=== PATIENT | female | born 1990 | race Caucasian/White ===

== ENCOUNTER 2020-02-28 12:07 | Emergency (ER) | payer MEDICAID ==
[~2020-02-28] VITALS: Ht 157.5 cm; Wt 93.9 kg
[2020-02-28 12:12] VITALS: BP 132/80
[2020-02-28] MEDS: KETOROLAC 60 MG/2 ML VIAL IM ONE (12:27)
[2020-02-28 13:52] VITALS: BP 128/82
== END 2020-02-28 13:52 | disposition home or self-care (01) ==
LOC: MED 12:07
DX: S63.501A Unspecified sprain of right wrist, initial encounter (principal); X58.XXXA Exposure to other specified factors, initial encounter; Y93.89 Activity, other specified; Y92.89 Other specified places as the place of occurrence of the external cause; Y99.8 Other external cause status
CPT/HCPCS: 29125; 96372; 99283; J1885

== ENCOUNTER 2020-04-02 14:53 | Emergency (ER) | payer MEDICAID, SELFPAY ==
[~2020-04-02] VITALS: Ht 157.5 cm; Wt 90.7 kg
[2020-04-02 15:15] VITALS: BP 152/89
--- NOTE | 2020-04-02 15:58 | NUR ---
COVID SWAB COLLECTED AND SENT TO THE LAB.
--- NOTE | 2020-04-02 16:00 | NUR ---
Patient discharged with v/s stable. Written and verbal after care instructions given and explained. Patient alert, oriented and verbalized understanding of instructions. Ambulatory with steady gait. All questions addressed prior to discharge. ID band removed. Patient advised to follow up with PMD. Rx of Promethzine and Ibuprofen given. Patient educated on indication of medication including possible reaction and side effects. Opportunity to ask questions provided and answered. No other nursing care provided in our ER.
== END 2020-04-02 16:00 | disposition home or self-care (01) ==
LOC: MED 14:53
DX: R03.0 Elevated blood-pressure reading, without diagnosis of hypertension (principal); Z20.828 Contact with and (suspected) exposure to other viral communicable diseases
CPT/HCPCS: 99283; U0003

== ENCOUNTER 2020-09-08 12:31 | Observation (INO) | payer MEDICAID, SELFPAY ==
[~2020-09-08] VITALS: Ht 157.5 cm; Wt 95.3 kg
[2020-09-08] MEDS ORDERED: FAMO-90 PO (13:03)
[2020-09-08] MEDS ORDERED: ONDA4TAB PO (13:03)
[2020-09-08 13:25] VITALS: BP 138/63
[2020-09-08] MEDS ORDERED: ONDANSETRON 8 MG in NACL 0.9% 50 ML IVP PRN (13:50)
[2020-09-08] MEDS: LACTATED RINGERS 1,000 ML IV SCH ×2 (14:17→18:08)
[2020-09-08] MEDS ORDERED: ACETAMINOPHEN 325 MG TAB PO PRN (15:20)
[2020-09-08] MEDS ORDERED: ACETAMINOPHEN 325 MG TAB ONE (15:22)
[2020-09-08] MEDS: MORPHINE SULFATE 4 MG/ML SYR IVP PRN (20:38)
[2020-09-08] MEDS ORDERED: ONDANSETRON 4 MG/2 ML VIAL ONE (22:17)
[2020-09-08] MEDS: ONDANSETRON 8 MG in NACL 0.9% 50 ML IVP PRN (22:53)
[2020-09-09] MEDS: MORPHINE SULFATE 4 MG/ML SYR IVP PRN ×2 (00:56→07:32)
[2020-09-09] MEDS: LACTATED RINGERS 1,000 ML IV SCH ×2 (02:25→10:04)
[2020-09-09] MEDS ORDERED: ONDANSETRON 4 MG/2 ML VIAL ONE (06:36)
[2020-09-09] MEDS: ONDANSETRON 8 MG in NACL 0.9% 50 ML IVP PRN (06:54)
--- NOTE | 2020-09-09 08:25 | NUR ---
PATIENT HAS BEEN SCREENED AND CATEGORIZED LOW NUTRITION RISK. PATIENT WILL BE SEEN WITHIN 7 DAYS OF ADMISSION. 09/15/[address]
[2020-09-09] MEDS ORDERED: ALUMINUM HYD/MAG/SIMETHICONE 30 ML UDC PO PRN (11:55)
[2020-09-09] MEDS ORDERED: FAMOTIDINE 20 MG TAB ONE (13:16)
[2020-09-09] MEDS ORDERED: FAMOTIDINE 20 MG TAB PO SCH ×2 (13:30→21:00)
== END 2020-09-09 13:45 | disposition home or self-care (01) ==
LOC: MLD 12:31 → MFCC 12:42
PROVIDERS: ADMIT Obstetrics & Gynecology; ATTEND Obstetrics & Gynecology
DX: O21.2 Late vomiting of pregnancy (principal); O26.892 Other specified pregnancy related conditions, second trimester; R10.9 Unspecified abdominal pain; R42 Dizziness and giddiness; Z3A.27 27 weeks gestation of pregnancy
CPT/HCPCS: 59025; 81000; 96361; 96374; 96375; 96376; G0378; J2270; J2405; J7120

== ENCOUNTER 2020-10-14 14:47 | Observation (INO) | payer MEDICAID ==
[~2020-10-14] VITALS: Ht 157.5 cm; Wt 90.7 kg
[~2020-10-14 14:47] MED LIST: FAMO-90 PO
[2020-10-14] MEDS ORDERED: ONDA4TAB PO (15:24)
[2020-10-14] MEDS ORDERED: PNV91TAB10 PO (15:24)
[2020-10-14] MEDS ORDERED: ONDANSETRON 4 MG/2 ML VIAL IVP PRN (15:45)
[2020-10-14] MEDS ORDERED: LACTATED RINGERS 1,000 ML IV SCH (15:45)
[2020-10-14] MEDS ORDERED: FAMOTIDINE 20 MG/2 ML VIAL IVP SCH (18:10)
[2020-10-14] MEDS ORDERED: MORPHINE SULFATE 2 MG/ML SYR IVP SCH (18:10)
[2020-10-14] MEDS ORDERED: MORPHINE SULFATE 4 MG/ML SYR ONE (18:17)
== END 2020-10-14 21:28 | disposition home or self-care (01) ==
LOC: MLD 14:47
PROVIDERS: ADMIT Obstetrics & Gynecology; ATTEND Obstetrics & Gynecology
DX: O36.8130 Decreased fetal movements, third trimester, not applicable or unspecified (principal); Z20.822 Contact with and (suspected) exposure to COVID-19; O21.2 Late vomiting of pregnancy; O26.893 Other specified pregnancy related conditions, third trimester; R19.7 Diarrhea, unspecified; R10.13 Epigastric pain; O99.353 Diseases of the nervous system complicating pregnancy, third trimester; G43.909 Migraine, unspecified, not intractable, without status migrainosus; Z3A.33 33 weeks gestation of pregnancy
CPT/HCPCS: 59025; 87426; 96361; 96374; 96375; G0378; J2270; J2405; J3490

== ENCOUNTER 2020-10-31 08:53 | Inpatient (IN) | payer MEDICAID, SELFPAY ==
[~2020-10-31] VITALS: Ht 157.5 cm; Wt 97.5 kg
[~2020-10-31 08:53] MED LIST changes: +ONDA4TAB PO; +PNV91TAB10 PO
[2020-10-31] MEDS ORDERED: LACTATED RINGERS 1,000 ML IV SCH (09:30)
[2020-10-31] MEDS ORDERED: BETAMETH ACET/BETAMETH NA PH 30 MG/5 ML VIAL IM SCH (09:30)
[2020-10-31] MEDS: ACETAMINOPHEN 325 MG TAB PO PRN (09:50)
[2020-10-31] MEDS ORDERED: CITRIC ACID/SODIUM CITRATE 30 ML UDC PO SCH (10:25)
[2020-10-31] MEDS ORDERED: MAG SULF 2000 MG/WATER PREMIX 100 ML IV SCH (10:30)
[2020-10-31] MEDS ORDERED: hydrALAZINE 20 MG/ML VIAL IVP SCH (10:30)
[2020-10-31 10:39] VITALS: BP 166/79
[2020-10-31] MEDS: MAG SULF 20 GM/H2O PREMIX DRIP 500 ML IV PRN (11:25)
[2020-10-31 11:27] LABS: APPEARANCE,URINE CLEAR (CLEAR); BILIRUBIN,URINE NEGATIVE (NEGATIVE); BLOOD, URINE NEGATIVE (NEGATIVE); COLOR,URINE YELLOW (YELLOW); LEUKOCYTE ESTERASE ,URINE NEGATIVE (NEGATIVE); NITRITE, URINE NEGATIVE (NEGATIVE); UGLUCOSE NEGATIVE (NEGATIVE)
[2020-10-31 11:31] LABS: BASOPHILS % (AUTO) 0.1 % (0.0-2.0); EOSINOPHILS % (AUTO) 0.3 % (0.0-4.0); HEMATOCRIT 32.7 % (36-48); HEMOGLOBIN 10.6 g/dL (12.0-16.0); LYMPHOCYTES # (AUTO) 1.7 K/uL (2.5-16.5); LYMPHOCYTES % (AUTO) 24.3 % (20.5-51.1); MEAN CORPUSCULAR HEMOGLOBIN 27 pg (27-31); MEAN CORPUSCULAR HGB CONC 32 g/dL (33-37); MEAN CORPUSCULAR VOLUME 84.2 fL (80-94); MONOCYTES # (AUTO) 0.4 K/uL (0.8-1.0); MONOCYTES % (AUTO) 6.2 % (1.7-9.3); NEUTROPHILS # (AUTO) 4.7 K/uL (1.8-7.7); NEUTROPHILS % (AUTO) 69.1 % (42.2-75.2); PLATELET COUNT (AUTO) 188 K/uL (140-450); RED BLOOD CELL COUNT(AUTO) 3.88 MIL/uL (4.20-5.40); WHITE BLOOD COUNT (AUTO) 6.8 K/uL (4.8-10.8)
[2020-10-31 11:39] LABS: ANION GAP 14.7 (8-16); CARBON DIOXIDE 22.1 mmol/L (21-32); CREATININE 0.7 mg/dL (0.6-1.3); POTASSIUM 3.8 mmol/L (3.5-5.1)
[2020-10-31 11:44] LABS: ALBUMIN 2.1 g/dL (3.4-5.0); TOTAL BILIRUBIN 0.1 mg/dL (0.0-1.0)
[2020-10-31] MEDS ORDERED: MORPHINE PRES FREE 10 MG/10 ML AMP IV ONE (12:04)
[2020-10-31] MEDS ORDERED: ONDANSETRON 4 MG/2 ML VIAL IVP PRN (12:10)
[2020-10-31] MEDS ORDERED: MAGNESIUM CITRATE 300 ML BTL PO SCH (12:10)
[2020-10-31] MEDS ORDERED: MAG SULF 20 GM/H2O PREMIX DRIP 500 ML IV SCH (12:10)
[2020-10-31] MEDS ORDERED: TEMAZEPAM 15 MG CAP PO PRN (12:10)
[2020-10-31] MEDS ORDERED: oxyCODONE/APAP 5/325 MG 1 TAB TAB PO PRN ×2 (12:10)
[2020-10-31] MEDS ORDERED: ceFAZolin 1,000 MG VIAL IVP ONE (12:20)
[2020-10-31] MEDS ORDERED: OXYTOCIN 20 UNITS/LR PREMIX 1,000 ML IV ONE (12:50)
[2020-10-31] MEDS ORDERED: PROMETHAZINE 25 MG/ML VIAL IVP PRN (16:05)
[2020-10-31] MEDS: KETOROLAC 30 MG/ML VIAL IVP PRN (16:25)
[2020-10-31] MEDS: OXYTOCIN 20 UNITS in LACTATED RINGERS 1,000 ML IV SCH (19:33)
[2020-11-01] MEDS: MAG SULF 20 GM/H2O PREMIX DRIP 500 ML IV PRN (00:31)
[2020-11-01] MEDS: LABETALOL 200 MG TAB PO SCH ×3 (01:16→20:37)
[2020-11-01] MEDS: DOCUSATE SOD/SENNA 50/8.6 MG 1 TAB PO SCH ×2 (01:22→20:01)
--- NOTE | 2020-11-01 07:03 | NUR ---
PATIENT HAS BEEN SCREENED AND CATEGORIZED LOW NUTRITION RISK. PATIENT WILL BE SEEN WITHIN 7 DAYS OF ADMISSION. 11/08/20 DEYANIRA HERNANDEZ MS, RDN
[2020-11-01 07:19] LABS: BASOPHILS % (AUTO) 0.1 % (0.0-2.0); HEMATOCRIT 31.4 % (36-48); HEMOGLOBIN 10.3 g/dL (12.0-16.0); LYMPHOCYTES # (AUTO) 0.8 K/uL (2.5-16.5); LYMPHOCYTES % (AUTO) 7.3 % (20.5-51.1); MEAN CORPUSCULAR HEMOGLOBIN 27 pg (27-31); MEAN CORPUSCULAR HGB CONC 33 g/dL (33-37); MEAN CORPUSCULAR VOLUME 82.4 fL (80-94); MONOCYTES # (AUTO) 0.4 K/uL (0.8-1.0); MONOCYTES % (AUTO) 3.5 % (1.7-9.3); NEUTROPHILS # (AUTO) 10.3 K/uL (1.8-7.7); NEUTROPHILS % (AUTO) 89.1 % (42.2-75.2); PLATELET COUNT (AUTO) 204 K/uL (140-450); RED BLOOD CELL COUNT(AUTO) 3.81 MIL/uL (4.20-5.40); RED CELL DISTRIBUTION WIDTH 13.7 % (11.6-13.7); WHITE BLOOD COUNT (AUTO) 11.6 K/uL (4.8-10.8)
[2020-11-01] MEDS: KETOROLAC 30 MG/ML VIAL IVP PRN (07:46)
[2020-11-01] MEDS ORDERED: OXYTOCIN 20 UNITS/LR PREMIX 1,000 ML IV ONE (08:25)
[2020-11-01] MEDS: OXYTOCIN 20 UNITS in LACTATED RINGERS 1,000 ML IV SCH (08:29)
[2020-11-01] MEDS: IBUPROFEN 800 MG TAB PO PRN ×2 (14:10→22:44)
[2020-11-01] MEDS: SIMETHICONE 80 MG TAB.CHEW PO PRN (18:49)
[2020-11-01] MEDS: ACETAMINOPHEN 325 MG TAB PO PRN (18:50)
[2020-11-01] MEDS ORDERED: CAMERA MC ONE (19:31)
[2020-11-02] MEDS: IBUPROFEN 800 MG TAB PO PRN ×2 (05:13→16:49)
[2020-11-02] MEDS: SIMETHICONE 80 MG TAB.CHEW PO PRN (08:43)
[2020-11-02] MEDS: ACETAMINOPHEN 325 MG TAB PO PRN (08:43)
[2020-11-02] MEDS: LABETALOL 200 MG TAB PO SCH ×2 (08:43→20:29)
[2020-11-02 15:06] LABS: HEPATITIS B SURFACE ANTIGEN Negative (Negative)
[2020-11-02] MEDS ORDERED: CAMERA MC ONE (19:51)
[2020-11-02] MEDS: DOCUSATE SOD/SENNA 50/8.6 MG 1 TAB PO SCH (20:26)
[2020-11-03] MEDS: IBUPROFEN 800 MG TAB PO PRN ×2 (00:23→08:54)
[2020-11-03] MEDS: LABETALOL 200 MG TAB PO SCH (08:54)
[2020-11-04 11:13] LABS: RAPID PLASMA REAGIN NON-REACTIVE (Non Reactiv)
== END 2020-11-03 13:35 | disposition home or self-care (01) | DRG 540 ==
LOC: MLD 08:53 → OBSVTOIN 10:25 → MLD 14:04 → MFCC 11-01 14:10
PROVIDERS: ADMIT Obstetrics & Gynecology; ATTEND Obstetrics & Gynecology
PROC: 10D00Z1 Extraction of Products of Conception, Low, Open Approach (ICD-10-PCS; principal; 2020-10-31 13:00)
DX: O14.14 Severe pre-eclampsia complicating childbirth (principal); Z20.822 Contact with and (suspected) exposure to COVID-19; Z37.0 Single live birth; Z3A.35 35 weeks gestation of pregnancy
CPT/HCPCS: G0378 ×2; 36415; 51702; 80053; 81003; 82570; 83735; 85025; 86592; 86762; 86886; 86900; 86901; 87340; 87653-90; 88307; J0360; J0690; J0702; J1885; J2270; J2550; J2590; J3475; J7060; J7120

== ENCOUNTER 2020-12-02 11:40 | Emergency (ER) | payer MEDICAID, SELFPAY ==
[~2020-12-02] VITALS: Ht 157.5 cm; Wt 90.3 kg
[~2020-12-02 11:40] MED LIST changes: -FAMO-90 PO; -ONDA4TAB PO
[2020-12-02 12:07] VITALS: BP 138/75
--- NOTE | 2020-12-02 12:11 | NUR ---
PT TO WAIT IN TENT FOR DR EVALUATION
--- NOTE | 2020-12-02 13:16 | NUR ---
PT AMBULATED TO BED 11. PT PROVIDED URINE SAMPLE
[2020-12-02 13:36] LABS: BASOPHILS # (AUTO) 0.1 K/uL (0.00-0.22); BASOPHILS % (AUTO) 0.8 % (0.0-2.0); EOSINOPHILS # (AUTO) 0.1 K/uL (0-0.4); EOSINOPHILS % (AUTO) 1.4 % (0.0-4.0); HEMATOCRIT 34.7 % (36-48); HEMOGLOBIN 11.4 g/dL (12.0-16.0); LYMPHOCYTES # (AUTO) 2.3 K/uL (2.5-16.5); LYMPHOCYTES % (AUTO) 27.9 % (20.5-51.1); MEAN CORPUSCULAR HEMOGLOBIN 27 pg (27-31); MEAN CORPUSCULAR HGB CONC 33 g/dL (33-37); MEAN CORPUSCULAR VOLUME 83.2 fL (80-94); MONOCYTES # (AUTO) 0.4 K/uL (0.8-1.0); NEUTROPHILS # (AUTO) 5.4 K/uL (1.8-7.7); NEUTROPHILS % (AUTO) 64.9 % (42.2-75.2); PLATELET COUNT (AUTO) 225 K/uL (140-450); RED BLOOD CELL COUNT(AUTO) 4.17 MIL/uL (4.20-5.40); RED CELL DISTRIBUTION WIDTH 14.2 % (11.6-13.7); WHITE BLOOD COUNT (AUTO) 8.4 K/uL (4.8-10.8)
--- NOTE | 2020-12-02 13:40 | NUR ---
30/F C/O PAIN AT SITE. STATES SHE HAD A ONE MONTH AGO, STATES 9/10 PAIN FOR TWO DAYS, PAIN DESCRIBED SHARP/PULLING PAIN, WITH CHILLS, COLD SWEATS, DIZZINESS. DENIES FEVER, NAUSEA OR VOMITING. PT C SECTION SITE IS HEALED, THIN RED LINE TO LOWER ABD. NO DRAINAGE NOTED. PT PLACED IN GOWN. BED IN LOWEST POSITION FOR SAFETY. PMH: PRE-ECLAMPSIA & HTN DURING ALLERGIES: DENIES
--- NOTE | 2020-12-02 13:41 | NUR ---
LABS COLLECTED AND HANDED TO CLINIC OFFICE ASSISTANT.
[2020-12-02 13:48] LABS: ALBUMIN 3.2 g/dL (3.4-5.0); ANION GAP 11.4 (8-16); CARBON DIOXIDE 28.9 mmol/L (21-32); CREATININE 0.8 mg/dL (0.6-1.3); POTASSIUM 4.3 mmol/L (3.5-5.1); TOTAL BILIRUBIN 0.2 mg/dL (0.0-1.0)
--- NOTE | 2020-12-02 15:00 | NUR ---
Gary salguero in [facility] - 12/02/20 at 1500 by KENNETH LABS COLLECTED AND HANDED TO IRON ERECTOR.
--- NOTE | 2020-12-02 15:00 | NUR ---
LABS COLLECTED AND HANDED TO POTATO CHIP FRYER.
[2020-12-02] MEDS ORDERED: KETOROLAC 15 MG/ML VIAL IVP ONE (16:00)
[2020-12-02] MEDS ORDERED: MORPHINE SULFATE 4 MG/ML SYR IVP ONE (16:00)
[2020-12-02 16:33] LABS: APPEARANCE,URINE CLEAR (CLEAR); BILIRUBIN,URINE NEGATIVE (NEGATIVE); BLOOD, URINE NEGATIVE (NEGATIVE); COLOR,URINE YELLOW (YELLOW); LEUKOCYTE ESTERASE ,URINE NEGATIVE (NEGATIVE); NITRITE, URINE NEGATIVE (NEGATIVE); UGLUCOSE NEGATIVE (NEGATIVE)
[2020-12-02] MEDS ORDERED: ACET-10509 PO (16:33)
--- NOTE | 2020-12-02 16:50 | NUR ---
Patient discharged with v/s stable. Written and verbal after care instructions given and explained. Patient alert, oriented and verbalized understanding of instructions. Ambulatory with steady gait. All questions addressed prior to discharge. ID band removed. Patient advised to follow up with PMD. Rx of TYLENOL EXTRA STRENGTH given. Patient educated on indication of medication including possible reaction and side effects. Opportunity to ask questions provided and answered.
[2020-12-02 16:51] VITALS: BP 138/75
== END 2020-12-02 16:50 | disposition home or self-care (01) ==
LOC: MED 11:40
DX: R10.2 Pelvic and perineal pain (principal); G89.18 Other acute postprocedural pain; Z79.899 Other long term (current) drug therapy
CPT/HCPCS: 36415; 74177; 80053; 81003; 81025; 83690; 85025; 96374; 96375; 99285; J1885; J2270; Q9967

== ENCOUNTER 2021-04-07 07:46 | Emergency (ER) | payer MEDICAID, SELFPAY ==
[~2021-04-07] VITALS: Ht 157.5 cm; Wt 100.4 kg
[~2021-04-07 07:46] MED LIST changes: +ACET-10509 PO
[2021-04-07 07:50] VITALS: BP 155/91
--- NOTE | 2021-04-07 07:56 | NUR ---
PT AMB TO BED 8
--- NOTE | 2021-04-07 08:00 | NUR ---
DR LEE AT BEDSIDE.
--- NOTE | 2021-04-07 08:00 | NUR ---
EKG AT BEDSIDE.
--- NOTE | 2021-04-07 08:11 | NUR ---
31 Y/O F C/O CHEST PAIN 9/10 STARTED LAST NIGHT AND GOT WORSE THIS MORNIG AND ALSO BACK PAIN FOR THE LAST 2 DAYS. VITALS STABLE, O2 AT 99% ROOM AIR. 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
--- NOTE | 2021-04-07 08:21 | NUR ---
LAB AT BEDSIDE.
--- NOTE | 2021-04-07 08:28 | NUR ---
PT TO X-RAY VIA WHEELCHAIR.
[2021-04-07 08:32] LABS: BASOPHILS % (AUTO) 0.5 % (0.0-2.0); EOSINOPHILS # (AUTO) 0.1 K/uL (0-0.4); EOSINOPHILS % (AUTO) 0.8 % (0.0-4.0); HEMATOCRIT 35.8 % (36-48); HEMOGLOBIN 11.9 g/dL (12.0-16.0); LYMPHOCYTES # (AUTO) 2.3 K/uL (2.5-16.5); LYMPHOCYTES % (AUTO) 35.3 % (20.5-51.1); MEAN CORPUSCULAR HEMOGLOBIN 27 pg (27-31); MEAN CORPUSCULAR HGB CONC 33 g/dL (33-37); MEAN CORPUSCULAR VOLUME 82.3 fL (80-94); MONOCYTES # (AUTO) 0.4 K/uL (0.8-1.0); MONOCYTES % (AUTO) 5.4 % (1.7-9.3); NEUTROPHILS # (AUTO) 3.8 K/uL (1.8-7.7); PLATELET COUNT (AUTO) 243 K/uL (140-450); RED BLOOD CELL COUNT(AUTO) 4.36 MIL/uL (4.20-5.40); RED CELL DISTRIBUTION WIDTH 13.3 % (11.6-13.7); WHITE BLOOD COUNT (AUTO) 6.5 K/uL (4.8-10.8)
--- NOTE | 2021-04-07 08:34 | NUR ---
Gary salguero in [facility] - 04/07/21 at 1120 by [email or web address] PATIENT ESCORTED BACK TO BED VIA WHEELCHAIR
--- NOTE | 2021-04-07 08:35 | NUR ---
PT BACK FROM X-RAY.
[2021-04-07 08:50] LABS: ALBUMIN 3.5 g/dL (3.4-5.0); ANION GAP 13.2 (8-16); CARBON DIOXIDE 24.7 mmol/L (21-32); CREATININE 0.8 mg/dL (0.6-1.3); POTASSIUM 3.9 mmol/L (3.5-5.1); TOTAL BILIRUBIN 0.3 mg/dL (0.0-1.0)
[2021-04-07] MEDS ORDERED: KETOROLAC 30 MG/ML VIAL IVP ONE (09:10)
[2021-04-07] MEDS ORDERED: CYCLOBENZAPRINE 10 MG TAB PO ONE (09:10)
[2021-04-07] MEDS ORDERED: LIDOCAINE 5% 1 EA PATCH TP ONE (09:26)
[2021-04-07] MEDS ORDERED: ACET-2619 PO (11:06)
[2021-04-07 11:41] VITALS: BP 134/85
--- NOTE | 2021-04-07 11:43 | NUR ---
Patient discharged with v/s stable. Written and verbal after care instructions given and explained. Patient alert, oriented and verbalized understanding of instructions. Ambulatory with steady gait. All questions addressed prior to discharge. ID band removed. Patient advised to follow up with PMD. Rx of ACETAMINOPHEN given. Opportunity to ask questions provided and answered.
--- NOTE | 2021-04-07 11:44 | NUR ---
The patient's care was reviewed and supervised by Richelle Louie RN.
[2021-04-08] MEDS ORDERED: LIDOCAINE 5% 1 EA PATCH TP SCH (09:00)
== END 2021-04-07 11:42 | disposition home or self-care (01) ==
LOC: MED 07:46
DX: R07.9 Chest pain, unspecified (principal); Z79.899 Other long term (current) drug therapy
CPT/HCPCS: 36415; 71046; 80053; 81002; 84484; 85025; 93005; 96372; 99285; J1885

== ENCOUNTER 2021-07-18 14:38 | Emergency (ER) | payer MEDICAID ==
[~2021-07-18] VITALS: Ht 157.5 cm; Wt 93.0 kg
[~2021-07-18 14:38] MED LIST changes: +ACET-2619 PO
[2021-07-18 14:46] VITALS: BP 170/87
[2021-07-18] MEDS ORDERED: CEPH-588 PO (15:49)
[2021-07-18] MEDS ORDERED: ACET-8386 PO (15:49)
[2021-07-18 16:02] VITALS: BP 170/87
--- NOTE | 2021-07-18 16:03 | NUR ---
Patient discharged with v/s stable. Written and verbal after care instructions given and explained. Patient alert, oriented and verbalized understanding of instructions. Ambulatory with steady gait. All questions addressed prior to discharge. ID band removed. Patient advised to follow up with PMD. Rx of KEFLEX AND HYDROCODONE/ACETAMINOPHEN given. Patient educated on indication of medication including possible reaction and side effects. Opportunity to ask questions provided and answered.
== END 2021-07-18 16:03 | disposition home or self-care (01) ==
LOC: MED 14:38
DX: M96.89 Other intraoperative and postprocedural complications and disorders of the musculoskeletal system (principal); R03.0 Elevated blood-pressure reading, without diagnosis of hypertension; Z79.899 Other long term (current) drug therapy; Y83.9 Surgical procedure, unspecified as the cause of abnormal reaction of the patient, or of later complication, without mention of misadventure at the time of the procedure
CPT/HCPCS: 99283

== ENCOUNTER 2023-04-19 16:03 | Emergency (ER) | payer MEDICAID ==
[~2023-04-19] VITALS: Ht 157.5 cm; Wt 79.8 kg
[~2023-04-19 16:03] MED LIST changes: +ACET-8905 PO; +CEPH-588 PO
[2023-04-19 16:12] VITALS: BP 150/78; PULSE 75; RESP 18; TEMP 98; O2SAT 100
[2023-04-19] MEDS: methocarbamoL 500 MG TAB PO STA (20:34)
[2023-04-19] MEDS: KETOROLAC 30 MG/ML VIAL IM ONE (20:36)
[2023-04-19] MEDS: LIDOCAINE 5% 1 EA PATCH TP ONE (20:37)
[2023-04-19] MEDS ORDERED: IBUP-2213 PO (21:07)
[2023-04-19] MEDS ORDERED: LID5T TP (21:07)
[2023-04-19] MEDS ORDERED: METH-1681 PO (21:07)
[2023-04-19 21:33] VITALS: BP 135/60; PULSE 75; RESP 18; TEMP 98; O2SAT 100
== END 2023-04-19 21:33 | disposition home or self-care (01) ==
LOC: MED 16:03
DX: M54.50 Low back pain, unspecified (principal); Z79.899 Other long term (current) drug therapy; Z79.1 Long term (current) use of non-steroidal anti-inflammatories (NSAID); Z79.2 Long term (current) use of antibiotics
CPT/HCPCS: 72110; 81002; 81025; 96372; 99283; J1885

== ENCOUNTER 2023-07-29 12:51 | Emergency (ER) | payer MEDICAID ==
[~2023-07-29] VITALS: Ht 157.5 cm; Wt 78.9 kg
[~2023-07-29 12:51] MED LIST changes: +IBUP-2213 PO; +LID5T TP; +METH-1681 PO
[2023-07-29 13:18] VITALS: BP 152/94; PULSE 57; RESP 16; TEMP 98.4; O2SAT 99
[2023-07-29] MEDS: ACETAMINOPHEN EXTRA STRENGTH 500 MG TAB PO ONE (14:25)
[2023-07-29] MEDS: KETOROLAC 30 MG/ML VIAL IM ONE (14:27)
[2023-07-29 14:48] LABS: BASOPHILS % (AUTO) 0.2 % (0.0-2.0); EOSINOPHILS # (AUTO) 0.1 K/uL (0-0.4); EOSINOPHILS % (AUTO) 0.8 % (0.0-4.0); HEMATOCRIT 38.6 % (36-48); HEMOGLOBIN 12.6 g/dL (12.0-16.0); LYMPHOCYTES # (AUTO) 2.7 K/uL (2.5-16.5); LYMPHOCYTES % (AUTO) 40.5 % (20.5-51.1); MEAN CORPUSCULAR HEMOGLOBIN 28 pg (27-31); MEAN CORPUSCULAR HGB CONC 33 g/dL (33-37); MEAN CORPUSCULAR VOLUME 86.1 fL (80-94); MONOCYTES # (AUTO) 0.3 K/uL (0.8-1.0); MONOCYTES % (AUTO) 3.8 % (1.7-9.3); NEUTROPHILS # (AUTO) 3.7 K/uL (1.8-7.7); NEUTROPHILS % (AUTO) 54.7 % (42.2-75.2); PLATELET COUNT (AUTO) 198 K/uL (140-450); RED BLOOD CELL COUNT(AUTO) 4.48 MIL/uL (4.20-5.40); RED CELL DISTRIBUTION WIDTH 13.7 % (11.6-13.7); WHITE BLOOD COUNT (AUTO) 6.7 K/uL (4.8-10.8)
[2023-07-29 14:56] LABS: ANION GAP 10.3 (8-16); CALCIUM 9.1 mg/dL (8.5-10.1); CARBON DIOXIDE 29.5 mmol/L (21-32); CREATININE 0.7 mg/dL (0.6-1.3); POTASSIUM 3.8 mmol/L (3.5-5.1)
[2023-07-29 15:02] LABS: ALBUMIN 3.9 g/dL (3.4-5.0); TOTAL BILIRUBIN 0.2 mg/dL (0.0-1.0); TOTAL PROTEIN, SERUM 7.5 g/dL (6.4-8.2)
[2023-07-29 15:27] VITALS: BP 145/87; PULSE 52; RESP 16; TEMP 98
[2023-07-29] MEDS ORDERED: MIRABULK PO (15:42)
[2023-07-29 16:08] VITALS: O2SAT 99
== END 2023-07-29 16:00 | disposition home or self-care (01) ==
LOC: MED 12:51
DX: K59.00 Constipation, unspecified (principal); R10.32 Left lower quadrant pain; Z79.899 Other long term (current) drug therapy
CPT/HCPCS: 36415; 74018; 74176; 80048; 80076; 81025; 83690; 85025; 96372; 99285; J1885

== ENCOUNTER 2023-10-11 10:07 | Emergency (ER) | payer MEDICAID ==
[~2023-10-11] VITALS: Ht 157.5 cm; Wt 77.1 kg
[~2023-10-11 10:07] MED LIST changes: +MIRABULK PO
[2023-10-11 10:11] VITALS: BP 125/66; PULSE 74; RESP 18; TEMP 98.3; O2SAT 100
[2023-10-11] MEDS: KETOROLAC 30 MG/ML VIAL IM ONE (10:49)
[2023-10-11] MEDS: HYDROcodone/APAP 5/325 MG 1 TAB TAB PO ONE (10:51)
[2023-10-11] MEDS ORDERED: ACET-8905 PO (12:11)
[2023-10-11] MEDS ORDERED: IBUP-1842 PO (12:11)
[2023-10-11 12:17] VITALS: BP 125/66; PULSE 74; RESP 18; TEMP 98.3; O2SAT 100
== END 2023-10-11 12:19 | disposition home or self-care (01) ==
LOC: MED 10:07
DX: S30.0XXA Contusion of lower back and pelvis, initial encounter (principal); F12.90 Cannabis use, unspecified, uncomplicated; G43.909 Migraine, unspecified, not intractable, without status migrainosus; Z98.890 Other specified postprocedural states; Z79.1 Long term (current) use of non-steroidal anti-inflammatories (NSAID); Z79.2 Long term (current) use of antibiotics; Z79.899 Other long term (current) drug therapy; W19.XXXA Unspecified fall, initial encounter; Y93.89 Activity, other specified; Y92.89 Other specified places as the place of occurrence of the external cause; Y99.8 Other external cause status
CPT/HCPCS: 72100; 72170; 81025; 96372; 99284; J1885